=== PATIENT | male | born 1970 | race African-American/Black ===

== ENCOUNTER 2019-09-05 09:55 | Inpatient (IN) | payer BC ==
[~2019-09-05] VITALS: Ht 180.3 cm; Wt 175.7 kg
--- NOTE | 2019-09-05 11:07 | PHYS DOC ---
Adult General Chief Complaint Chief Complaint: SHORTNESS OF BREATH HPI HPI Patient is a 48 year old -[place] male with past medical history significant for hypertension and diabetes who presents with complaint of increasing shortness of breath and chest pressure on exertion over the past week. Currently he is asymptomatic. The patient reports that he had been taking lisinopril twice daily and in June was transitioned to once daily and also started on metformin for diabetes. He denies fever or cough recently. Review of Systems Review of Systems All other systems were reviewed and found to be within normal limits, except as documented in this note. Allergies Allergies Allergies Coded Allergies Type Severity Reaction Last Updated Verified No Known Drug Allergies 09/05/19 No Physical Exam Physical Exam Constitutional: Well developed, well nourished, no acute distress, non-toxic appearance. [] HENT: Normocephalic, atraumatic, bilateral external ears normal, oropharynx moist, no oral exudates, nose normal. [] Eyes: PERRLA, EOMI, conjunctiva normal, no discharge. [] Neck: Normal range of motion, no tenderness, supple, no stridor. [] Cardiovascular:Heart rate regular rhythm, no murmur [] Lungs & Thorax: Bilateral breath sounds clear to auscultation [] Abdomen: Bowel sounds normal, soft, no tenderness, no masses, no pulsatile masses. [] Skin: Warm, dry, no erythema, no rash. [] Back: No tenderness, no CVA tenderness. [] Extremities: No tenderness, no cyanosis, no clubbing, ROM intact, no edema. [] Neurologic: Alert and oriented X 3, normal motor function, normal sensory function, no focal deficits noted. [] Psychologic: Affect normal, judgement normal, mood normal. [] Current Patient Data Vital Signs Vital Signs Date Time Temp Pulse Resp B/P (MAP) Pulse Ox O2 Delivery O2 Flow Rate FiO2 09/05/19 10:50 98.2 94 18 212/125 (154) 98 Room Air 98.2 Lab Values Laboratory Tests Test 09/05/19 11:03 09/05/19 11:20 White Blood Count 6.5 x10^3/uL (4.0-11.0) Red Blood Count 4.85 x10^6/uL (4.30-5.70) Hemoglobin 14.2 g/dL (13.0-17.5) Hematocrit 41.6 % (39.0-53.0) Mean Corpuscular Volume 86 fL (79-100) Mean Corpuscular Hemoglobin 29 pg (25-35) Mean Corpuscular Hemoglobin Concent 34 g/dL (31-37) Red Cell Distribution Width 13.3 % (11.5-14.5) Platelet Count 245 x10^3/uL (140-400) Neutrophils (%) (Auto) 62 % (31-73) Lymphocytes (%) (Auto) 25 % (24-48) Monocytes (%) (Auto) 8 % (0-9) Eosinophils (%) (Auto) 4 % (0-3) H Basophils (%) (Auto) 1 % (0-3) Neutrophils # (Auto) 4.1 x10^3/uL (1.8-7.7) Lymphocytes # (Auto) 1.6 x10^3/uL (1.0-4.8) Monocytes # (Auto) 0.5 x10^3/uL (0.0-1.1) Eosinophils # (Auto) 0.2 x10^3/uL (0.0-0.7) Basophils # (Auto) 0.1 x10^3/uL (0.0-0.2) Prothrombin Time 12.4 SEC (11.7-14.0) Prothrombin Time INR 1.0 (0.8-1.1) Activated Partial Thromboplast Time 30 SEC (24-38) Sodium Level 140 mmol/L (136-145) Potassium Level 3.6 mmol/L (3.5-5.1) Chloride Level 100 mmol/L (98-107) Carbon Dioxide Level 28 mmol/L (21-32) Anion Gap 12 (6-14) Blood Urea Nitrogen 11 mg/dL (8-26) Creatinine 1.2 mg/dL (0.7-1.3) Estimated GFR (Cockcroft-Gault) 77.9 Glucose Level 160 mg/dL (70-99) H Calcium Level 8.9 mg/dL (8.5-10.1) Creatine Kinase 755 U/L (39-308) H Creatine Kinase MB (Mass) 4.8 ng/mL (0.0-3.6) H Creatine Kinase MB Relative Index 0.6 % (0-4) Troponin I Quantitative 0.099 ng/mL (0.000-0.055) NP-Qkh-U-Type Natriuretic Peptide 126 pg/mL (0-124) H Influenza Type A Antigen Negative (NEGATIVE) Influenza Type B Antigen Negative (NEGATIVE) Laboratory Tests 09/05/19 11:03 Laboratory Tests 09/05/19 11:03 EKG EKG EKG shows a sinus rhythm with no ST changes and a heart rate of 91 with normal intervals. [] Radiology/Procedures Radiology/Procedures EXAM: CHEST 1 VIEW History: Shortness of breath COMPARISON: None available. TECHNIQUE: Single portable radiograph of the chest FINDINGS: The cardiac silhouette is unremarkable. The lungs are clear bilaterally. The costophrenic sulci are clear and well demarcated. IMPRESSION: No radiographic evidence of an acute cardiopulmonary process.[] Course & Med Decision Making Course & Med Decision Making Pertinent Labs and Imaging studies reviewed. (See chart for details) 1107: Patient seen for shortness of breath and chest pain on exertion. Currently is asymptomatic and his vessels are stable. Will get a cardiac work- up including BNP and also check for influenza. 1159: Labs revealed mild elevation of the patient's troponin. Given his symptoms over the past week I will admit him for further work-up. Will speak to hospitalist regarding starting heparin versus trending troponins. Blood pressure has also been elevated throughout his stay which could be contributing to his hypertension; will give 10 mg of hydralazine. Dragon Disclaimer Dragon Disclaimer This electronic medical record was generated, in whole or in part, using a voice recognition dictation system. Departure Departure Impression: Primary Impression: NSTEMI (non-ST elevated myocardial infarction) Additional Impression: Hypertension Disposition: ADMITTED INPATIENT Admitting Physician: HIMS Condition: STABLE Referrals: NO PCP (PCP) Problem Qualifiers CHARISSE RAO DO Sep 05, 2019 11:07
[2019-09-05 11:22] LABS: BASO # 0.1 x10^3/uL (0.0-0.2); BASO % 1 % (0-3); EOS # 0.2 x10^3/uL (0.0-0.7); EOS % 4 % (0-3); HEMATOCRIT 41.6 % (39.0-53.0); HEMOGLOBIN 14.2 g/dL (13.0-17.5); LYMPH # 1.6 x10^3/uL (1.0-4.8); LYMPH % 25 % (24-48); MEAN CORPUSCULAR HEMOGLOBIN 29 pg (25-35); MEAN CORPUSCULAR HGB CONC 34 g/dL (31-37); MEAN CORPUSCULAR VOLUME 86 fL (79-100); MONO # 0.5 x10^3/uL (0.0-1.1); MONO % 8 % (0-9); NEUT # 4.1 x10^3/uL (1.8-7.7); NEUT % 62 % (31-73); PLATELET COUNT 245 x10^3/uL (140-400); RED BLOOD COUNT 4.85 x10^6/uL (4.30-5.70); RED CELL DISTRIBUTION WIDTH 13.3 % (11.5-14.5); WHITE BLOOD COUNT 6.5 x10^3/uL (4.0-11.0)
[2019-09-05 11:31] LABS: PROTHROMBIN TIME PATIENT 12.4 SEC (11.7-14.0)
--- NOTE | 2019-09-05 11:33 | RAD ---
EXAM: CHEST 1 VIEW History: Shortness of breath COMPARISON: None available. TECHNIQUE: Single portable radiograph of the chest FINDINGS: The cardiac silhouette is unremarkable. The lungs are clear bilaterally. The costophrenic sulci are clear and well demarcated. IMPRESSION: No radiographic evidence of an acute cardiopulmonary process. Electronically signed by: Bryant Arellano MD (09/05/2019 11:30 AM) [id number]
[2019-09-05 11:37] LABS: CALCIUM 8.9 mg/dL (8.5-10.1); CREATININE 1.2 mg/dL (0.7-1.3); GFR 77.9; POTASSIUM 3.6 mmol/L (3.5-5.1)
[2019-09-05 11:54] LABS: INFLUENZA A PATIENT NEGATIVE (NEGATIVE); INFLUENZA B PATIENT NEGATIVE (NEGATIVE)
--- NOTE | 2019-09-05 12:07 | PDOC1 ---
History and Physical Date of Admission Date of Admission DATE: 09/05/19 TIME: 12:07 Identification/Chief Complaint Chief Complaint SEEN IN ER WITH NSTEMI 48 year old -[place] male with past medical history significant for hypertension and diabetes who presents with complaint of increasing shortness of breath and chest pressure on exertion over the past week. The patient reports that he had been taking lisinopril twice daily and in June was transitioned to once daily and also started on metformin for diabetes Past Medical History Cardiovascular: HTN, Hyperlipidemia Endocrine: Diabetes Family History Family History: High Cholestrol, Hypertension Social History Smoke: No ALCOHOL: none Drugs: None Current Problem List Problem List Problems Medical Problems: (1) Hypertension Status: Acute (2) NSTEMI (non-ST elevated myocardial infarction) Status: Acute Allergies Allergies: Coded Allergies: No Known Drug Allergies (Unverified , 09/05/19) ROS Review of System Review of Systems Review of Systems 14 PT systems were reviewed and found to be within normal limits, except as documented General: No: Chills, Night Sweats, Fatigue, Malaise, Appetite, Other ALLERGY AND IMMUNOLOGY: No: Hives, Insect Bite Sensitivity, Itchy/Watery Eyes, Nasal Congestion, Post Nasal Drip, Seasonal Allergies, Other Hematological and Lymphatic: No: Bleeding Problems, Blood Clots, Blood Transfusions, Brusing, Night Sweats, Pallor, Swollen Lymph Nodes, Other Respiratory: YES: Shortness of breath, SOB with excertion; No: Cough, Hemoptysis, Orthopnea, Pleuritic Pain, Sputum Changes, Stridor, Tachypnea, Wheezing, Other Gastrointestinal: No Nausea, No Vomiting, No Abdominal Pain, No Diarrhea, No Constipation, No Melena, No Hematochezia, No Other Genitourinary: No Dysuria, No Frequency, No Incontinence, No Hematuria, No Retention, No Discharge, No Urgency, No Pain, No Flank Pain, No Other, No , No , No , No , No , No , No Musculoskeletal: Yes Joint Stiffness; No Gait Disturbance, No Joint Pain, No Joint Swelling, No Muscle Pain, No Muscular Weakness, No Pain In:, No Swelling In:, No Other Neurological: No Behavorial Changes, No Bowel/Bladder ControlChng, No Confusion, No Dizziness, No Gait Disturbance, No Headaches, No Impaired Coord/balance, No Memory Loss, No Numbness/Tingling, No Seizures, No Speech Problems, No Tremors, No Visual Changes, No Weakness, No Other Physical Exam Physical Exam Physical Exam Physical Exam Constitutional: Well developed, well nourished, no acute distress, non-toxic appearance. [] HENT: Normocephalic, atraumatic, bilateral external ears normal, oropharynx moist, no oral exudates, nose normal. [] Eyes: PERRLA, EOMI, conjunctiva normal, no discharge. [] Neck: Normal range of motion, no tenderness, supple, no stridor. [] Cardiovascular:Heart rate regular rhythm, no murmur [] Lungs & Thorax: Bilateral breath sounds clear to auscultation [] Abdomen: Bowel sounds normal, soft, no tenderness, no masses, no pulsatile masses. OBESE[] Skin: Warm, dry, no erythema, no rash. [] Back: No tenderness, no CVA tenderness. [] Extremities: No tenderness, no cyanosis, no clubbing, ROM intact, no edema. [] Neurologic: Alert and oriented X 3, normal motor function, normal sensory function, no focal deficits noted. [] Psychologic: Affect normal, judgment normal, mood normal. [] General: Alert, Oriented X3, Cooperative, No acute distress HEENT: EOMI, Mucous membr. moist/pink Lungs: Clear to auscultation, Normal air movement Heart: S1S2, RRR, no thrills Abdomen: Normal bowel sounds, Soft Rectal Exam: not examined PELVIC: Examination not indicated Extremities: No cyanosis Neuro: Normal speech, Cranial nerves 3-12 NL Psych/Mental Status: Mental status NL, Mood NL Vitals Vitals Vital Signs Date Time Temp Pulse Resp B/P (MAP) Pulse Ox O2 Delivery O2 Flow Rate FiO2 09/05/19 10:50 98.2 94 18 212/125 (154) 98 Room Air 98.2 Labs Labs Laboratory Tests Test 09/05/19 11:03 09/05/19 11:20 White Blood Count 6.5 x10^3/uL (4.0-11.0) Red Blood Count 4.85 x10^6/uL (4.30-5.70) Hemoglobin 14.2 g/dL (13.0-17.5) Hematocrit 41.6 % (39.0-53.0) Mean Corpuscular Volume 86 fL (79-100) Mean Corpuscular Hemoglobin 29 pg (25-35) Mean Corpuscular Hemoglobin Concent 34 g/dL (31-37) Red Cell Distribution Width 13.3 % (11.5-14.5) Platelet Count 245 x10^3/uL (140-400) Neutrophils (%) (Auto) 62 % (31-73) Lymphocytes (%) (Auto) 25 % (24-48) Monocytes (%) (Auto) 8 % (0-9) Eosinophils (%) (Auto) 4 % (0-3) Basophils (%) (Auto) 1 % (0-3) Neutrophils # (Auto) 4.1 x10^3/uL (1.8-7.7) Lymphocytes # (Auto) 1.6 x10^3/uL (1.0-4.8) Monocytes # (Auto) 0.5 x10^3/uL (0.0-1.1) Eosinophils # (Auto) 0.2 x10^3/uL (0.0-0.7) Basophils # (Auto) 0.1 x10^3/uL (0.0-0.2) Prothrombin Time 12.4 SEC (11.7-14.0) Prothromb Time International Ratio 1.0 (0.8-1.1) Activated Partial Thromboplast Time 30 SEC (24-38) Sodium Level 140 mmol/L (136-145) Potassium Level 3.6 mmol/L (3.5-5.1) Chloride Level 100 mmol/L (98-107) Carbon Dioxide Level 28 mmol/L (21-32) Anion Gap 12 (6-14) Blood Urea Nitrogen 11 mg/dL (8-26) Creatinine 1.2 mg/dL (0.7-1.3) Estimated GFR (Cockcroft-Gault) 77.9 Glucose Level 160 mg/dL (70-99) Calcium Level 8.9 mg/dL (8.5-10.1) Creatine Kinase 755 U/L (39-308) Creatine Kinase MB (Mass) 4.8 ng/mL (0.0-3.6) Creatine Kinase MB Relative Index 0.6 % (0-4) Troponin I Quantitative 0.099 ng/mL (0.000-0.055) AN-Loy-P-Type Natriuretic Peptide 126 pg/mL (0-124) Influenza Type A Antigen Negative (NEGATIVE) Influenza Type B Antigen Negative (NEGATIVE) Laboratory Tests Test 09/05/19 11:03 09/05/19 11:20 White Blood Count 6.5 x10^3/uL (4.0-11.0) Red Blood Count 4.85 x10^6/uL (4.30-5.70) Hemoglobin 14.2 g/dL (13.0-17.5) Hematocrit 41.6 % (39.0-53.0) Mean Corpuscular Volume 86 fL (79-100) Mean Corpuscular Hemoglobin 29 pg (25-35) Mean Corpuscular Hemoglobin Concent 34 g/dL (31-37) Red Cell Distribution Width 13.3 % (11.5-14.5) Platelet Count 245 x10^3/uL (140-400) Neutrophils (%) (Auto) 62 % (31-73) Lymphocytes (%) (Auto) 25 % (24-48) Monocytes (%) (Auto) 8 % (0-9) Eosinophils (%) (Auto) 4 % (0-3) Basophils (%) (Auto) 1 % (0-3) Neutrophils # (Auto) 4.1 x10^3/uL (1.8-7.7) Lymphocytes # (Auto) 1.6 x10^3/uL (1.0-4.8) Monocytes # (Auto) 0.5 x10^3/uL (0.0-1.1) Eosinophils # (Auto) 0.2 x10^3/uL (0.0-0.7) Basophils # (Auto) 0.1 x10^3/uL (0.0-0.2) Prothrombin Time 12.4 SEC (11.7-14.0) Prothromb Time International Ratio 1.0 (0.8-1.1) Activated Partial Thromboplast Time 30 SEC (24-38) Sodium Level 140 mmol/L (136-145) Potassium Level 3.6 mmol/L (3.5-5.1) Chloride Level 100 mmol/L (98-107) Carbon Dioxide Level 28 mmol/L (21-32) Anion Gap 12 (6-14) Blood Urea Nitrogen 11 mg/dL (8-26) Creatinine 1.2 mg/dL (0.7-1.3) Estimated GFR (Cockcroft-Gault) 77.9 Glucose Level 160 mg/dL (70-99) Calcium Level 8.9 mg/dL (8.5-10.1) Creatine Kinase 755 U/L (39-308) Creatine Kinase MB (Mass) 4.8 ng/mL (0.0-3.6) Creatine Kinase MB Relative Index 0.6 % (0-4) Troponin I Quantitative 0.099 ng/mL (0.000-0.055) BS-Uvm-T-Type Natriuretic Peptide 126 pg/mL (0-124) Influenza Type A Antigen Negative (NEGATIVE) Influenza Type B Antigen Negative (NEGATIVE) Images Images EXAM: CHEST 1 VIEW History: Shortness of breath COMPARISON: None available. TECHNIQUE: Single portable radiograph of the chest FINDINGS: The cardiac silhouette is unremarkable. The lungs are clear bilaterally. The costophrenic sulci are clear and well demarcated. IMPRESSION: No radiographic evidence of an acute cardiopulmonary process. Electronically signed by: Bryant Arellano MD (09/05/2019 11:30 AM) [id number] DICTATED and SIGNED BY: BRYANT ARELLANO MD DATE: 09/05/19 1130 VTE Prophylaxis Ordered VTE Prophylaxis Devices: Yes VTE Pharmacological Prophylaxi: Yes Assessment/Plan Assessment/Plan Impression: acute NSTEMI (non-ST elevated myocardial infarction) vs type ii ischemia due to myocardial demand morbid obesity, extreme Hypertension Suspect OBESITY-HYPOVENTILATION SYNDROME DIABETES ADMITTED cvc bed Consult cardiology CONSIDER ECHO SERIAL TROPONIN I HS OXIMETRY STUDY DVT PROPHYLAXIS ACCUCHECKS 77 MIN pt exam, chart review, > 50% of time spent with exam, chart review, pt care coordination CAILIN STARKS MD Sep 05, 2019 12:07
[2019-09-05] MEDS ORDERED: ASPIRIN CHEWABLE 81 MG TABLET. PO ONE (12:30)
[2019-09-05] MEDS ORDERED: hydrALAZINE 20 MG/ML VIAL. IVP PRN (12:30)
[2019-09-05] MEDS ORDERED: 0.9 % SODIUM CHLORIDE 10 ML DISP.SYRIN. IV PRN (13:15)
[2019-09-05] MEDS ORDERED: ONDANSETRON PF 4 MG/2 ML VIAL. IV PRN (13:15)
[2019-09-05] MEDS ORDERED: ALBUTEROL SULFATE 2.5 MG/3 ML NEBU. NEB PRN (13:15)
[2019-09-05] MEDS ORDERED: DOCUSATE SODIUM 100 MG CAPSULE. PO PRN (13:15)
[2019-09-05] MEDS ORDERED: MAG HYDROX/ALUMINUM HYD/SIMETH 30 ML ORAL.SUSP PO PRN (13:15)
[2019-09-05] MEDS ORDERED: guaiFENesin ORAL 200 MG/10 ML LIQUID. PO PRN (13:15)
[2019-09-05] MEDS ORDERED: ACETAMINOPHEN 325 MG TABLET. PO PRN (13:15)
[2019-09-05 13:22] VITALS: BP 103/62
[2019-09-05] MEDS ORDERED: HYDR12.575 PO (13:29)
[2019-09-05] MEDS ORDERED: LISI1TAB23 PO (13:29)
[2019-09-05 15:00] VITALS: BP 184/93
--- NOTE | 2019-09-05 15:24 | EKG ---
[facility] [address] [place] [address] Test Date: 2019-09-05 Test Time: 10:58:40 Pat Name: HERBER MCGRATH Department: Room: Gender: M [employer]: : 1970 Requested By: CHARISSE RAO Order Number: [id number] Reading MD: Measurements Intervals [place] Rate: 91 P: 36 IL: 166 QRS: 76 QRSD: 86 T: 138 QT: 362 QTc: 446 Interpretive Statements SINUS RHYTHM LVH WITH REPOLARIZATION ABNORMALITY ABNORMAL ECG No previous ECG available for comparison
[2019-09-05] MEDS ORDERED: POTASSIUM CHLORIDE 20 MEQ TABLET.ER. PO ONE (16:00)
[2019-09-05] MEDS ORDERED: FUROSEMIDE 40 MG TABLET. PO ONE (16:00)
--- NOTE | 2019-09-05 16:00 | CONS ---
DATE OF CONSULTATION: 09/05/2019 REASON FOR CONSULTATION: Hypertension and elevated troponin. HISTORY OF PRESENT ILLNESS: The patient is a pleasant 48-year-old man who reports that he has been under significant stress over the last few weeks due to a divorce and who otherwise is compliant with his medications, who thinks that he had his lisinopril decreased over the last few months, which ultimately led to elevated blood pressures. It seems that he has been dyspneic, but denies any anginal symptoms. No syncope or palpitations. No other medication changes. PAST MEDICAL HISTORY: 1. Hypertension. 2. Morbid obesity. 3. Borderline diabetes. SOCIAL HISTORY: The patient is currently going through divorce. He lives with his brother. Denies any alcohol, tobacco or illicit drug use. ALLERGIES: No known drug allergies. CURRENT CARDIOVASCULAR MEDICATIONS: 1. Lisinopril 20 mg daily. 2. Hydrochlorothiazide 25 mg p.o. daily. REVIEW OF SYSTEMS: Negative for 10 out of 14 systems reviewed, unless otherwise mentioned above in HPI. PHYSICAL EXAMINATION: VITAL SIGNS: Afebrile, heart rate 86, respirations 16, blood pressure 184/93, saturating 99% on room air. GENERAL: He is alert and oriented, no acute distress. HEAD AND NECK: Unremarkable. CARDIAC: Deferred. PULMONARY: Deferred. ABDOMEN: Obese, protuberant, nontender. EXTREMITIES: Bilateral lower extremities have 2+ pitting edema. NEUROLOGIC: No focal deficits. MUSCULOSKELETAL: No trauma. DIAGNOSTIC STUDIES: Hemoglobin, platelets, creatinine within normal limits. BNP is elevated at 126, but grossly within normal limits. Troponin is mildly elevated at 0.099. EKG is notable for sinus rhythm with left ventricular hypertrophy. Other testing is pending including an echocardiogram. IMPRESSION: 1. Acute diastolic heart failure in the setting of hypertensive urgency. 2. Elevated troponin, likely type 2 due to demand mediated ischemia. 3. Morbid obesity. 4. Borderline diabetes. RECOMMENDATIONS: 1. We will reinitiate his lisinopril and hydrochlorothiazide, and use Lasix as well to help decrease his volume overload. 2. Depending on his response, we will adjust his medications overnight. Plan for an echocardiogram tomorrow. If his echocardiogram is unremarkable, then he may be discharged with close followup in the office. Otherwise, we will talk about cardiac catheterization as necessary. Thank you for this consultation. YOLI SCHAFFER MD DR: ARTHUR/cj JOB#: [id number] / [id number]
[2019-09-05] MEDS: LISINOPRIL 20 MG TABLET PO SCH (16:18)
[2019-09-05] MEDS: hydroCHLOROthiazide 25 MG TABLET PO SCH (16:18)
[2019-09-05 19:25] VITALS: BP 182/109
[2019-09-05] MEDS: cloNIDine HCL 0.1 MG TABLET PO PRN (19:58)
[2019-09-05 22:50] VITALS: BP 151/86
[2019-09-06 03:20] VITALS: BP 170/92
[2019-09-06] MEDS: cloNIDine HCL 0.1 MG TABLET PO PRN ×2 (03:26→20:14)
[2019-09-06 07:00] VITALS: BP 164/94
[2019-09-06] MEDS: hydroCHLOROthiazide 25 MG TABLET PO SCH (08:05)
[2019-09-06] MEDS: LISINOPRIL 20 MG TABLET PO SCH (08:05)
--- NOTE | 2019-09-06 10:15 | PDOC ---
PROGRESS NOTES Chief Complaint Chief Complaint Acute diastolic heart failure in the setting of hypertensive urgency. Elevated troponin, likely type 2 due to demand mediated ischemia Morbid obesity. Borderline diabetes. History of Present Illness History of Present Illness Mr Sampson is a 48 yo M w/ PMHx HTN, Prediabetes, morbid obesity who p/w elevated blood pressure and shortness of breath. Also with chest pressure on exertion over the past week. elevated troponin 0.099. BNP 126. EKG sinus rhythm with left ventricular hypertrophy. He notes that when he filled his recent meformin prescription his lisinopril/hctz was not refilled. Overnight his shortness of breath improved with BP control. Troponin went to 0.107-->0.116-->0.093. Planned for echocardiogram today. No CP. He is anxious to go home soon. Vitals Vitals Vital Signs Date Time Temp Pulse Resp B/P (MAP) Pulse Ox O2 Delivery O2 Flow Rate FiO2 09/06/19 08:05 80 164/94 09/06/19 08:00 Room Air 09/06/19 07:00 97.5 18 100 97.5 09/05/19 13:22 96.0 Physical Exam General: Alert, Oriented X3, Cooperative, No acute distress Abdomen: Normal bowel sounds, Soft Extremities: No cyanosis Labs LABS Laboratory Tests Test 09/05/19 11:03 09/05/19 11:20 09/05/19 18:05 09/05/19 20:30 White Blood Count 6.5 x10^3/uL (4.0-11.0) Red Blood Count 4.85 x10^6/uL (4.30-5.70) Hemoglobin 14.2 g/dL (13.0-17.5) Hematocrit 41.6 % (39.0-53.0) Mean Corpuscular Volume 86 fL (79-100) Mean Corpuscular Hemoglobin 29 pg (25-35) Mean Corpuscular Hemoglobin Concent 34 g/dL (31-37) Red Cell Distribution Width 13.3 % (11.5-14.5) Platelet Count 245 x10^3/uL (140-400) Neutrophils (%) (Auto) 62 % (31-73) Lymphocytes (%) (Auto) 25 % (24-48) Monocytes (%) (Auto) 8 % (0-9) Eosinophils (%) (Auto) 4 % (0-3) Basophils (%) (Auto) 1 % (0-3) Neutrophils # (Auto) 4.1 x10^3/uL (1.8-7.7) Lymphocytes # (Auto) 1.6 x10^3/uL (1.0-4.8) Monocytes # (Auto) 0.5 x10^3/uL (0.0-1.1) Eosinophils # (Auto) 0.2 x10^3/uL (0.0-0.7) Basophils # (Auto) 0.1 x10^3/uL (0.0-0.2) Prothrombin Time 12.4 SEC (11.7-14.0) Prothromb Time International Ratio 1.0 (0.8-1.1) Activated Partial Thromboplast Time 30 SEC (24-38) Sodium Level 140 mmol/L (136-145) Potassium Level 3.6 mmol/L (3.5-5.1) Chloride Level 100 mmol/L (98-107) Carbon Dioxide Level 28 mmol/L (21-32) Anion Gap 12 (6-14) Blood Urea Nitrogen 11 mg/dL (8-26) Creatinine 1.2 mg/dL (0.7-1.3) Estimated GFR (Cockcroft-Gault) 77.9 Glucose Level 160 mg/dL (70-99) Calcium Level 8.9 mg/dL (8.5-10.1) Creatine Kinase 755 U/L (39-308) Creatine Kinase MB (Mass) 4.8 ng/mL (0.0-3.6) Creatine Kinase MB Relative Index 0.6 % (0-4) Troponin I Quantitative 0.099 ng/mL (0.000-0.055) 0.116 ng/mL (0.000-0.055) TI-Kbx-N-Type Natriuretic Peptide 126 pg/mL (0-124) Influenza Type A Antigen Negative (NEGATIVE) Influenza Type B Antigen Negative (NEGATIVE) Glucose (Fingerstick) 133 mg/dL (70-99) Test 09/06/19 00:30 09/06/19 06:30 09/06/19 07:59 Troponin I Quantitative 0.107 ng/mL (0.000-0.055) 0.093 ng/mL (0.000-0.055) Glucose (Fingerstick) 150 mg/dL (70-99) Assessment and Plan Assessmemt and Plan Problems Medical Problems: (1) Hypertension Status: Acute (2) NSTEMI (non-ST elevated myocardial infarction) Status: Acute Comment Review of Relevant I have reviewed the following items arianna (where applicable) has been applied. Labs Laboratory Tests Test 09/05/19 11:03 09/05/19 11:20 09/05/19 18:05 09/05/19 20:30 White Blood Count 6.5 x10^3/uL (4.0-11.0) Red Blood Count 4.85 x10^6/uL (4.30-5.70) Hemoglobin 14.2 g/dL (13.0-17.5) Hematocrit 41.6 % (39.0-53.0) Mean Corpuscular Volume 86 fL (79-100) Mean Corpuscular Hemoglobin 29 pg (25-35) Mean Corpuscular Hemoglobin Concent 34 g/dL (31-37) Red Cell Distribution Width 13.3 % (11.5-14.5) Platelet Count 245 x10^3/uL (140-400) Neutrophils (%) (Auto) 62 % (31-73) Lymphocytes (%) (Auto) 25 % (24-48) Monocytes (%) (Auto) 8 % (0-9) Eosinophils (%) (Auto) 4 % (0-3) Basophils (%) (Auto) 1 % (0-3) Neutrophils # (Auto) 4.1 x10^3/uL (1.8-7.7) Lymphocytes # (Auto) 1.6 x10^3/uL (1.0-4.8) Monocytes # (Auto) 0.5 x10^3/uL (0.0-1.1) Eosinophils # (Auto) 0.2 x10^3/uL (0.0-0.7) Basophils # (Auto) 0.1 x10^3/uL (0.0-0.2) Prothrombin Time 12.4 SEC (11.7-14.0) Prothromb Time International Ratio 1.0 (0.8-1.1) Activated Partial Thromboplast Time 30 SEC (24-38) Sodium Level 140 mmol/L (136-145) Potassium Level 3.6 mmol/L (3.5-5.1) Chloride Level 100 mmol/L (98-107) Carbon Dioxide Level 28 mmol/L (21-32) Anion Gap 12 (6-14) Blood Urea Nitrogen 11 mg/dL (8-26) Creatinine 1.2 mg/dL (0.7-1.3) Estimated GFR (Cockcroft-Gault) 77.9 Glucose Level 160 mg/dL (70-99) Calcium Level 8.9 mg/dL (8.5-10.1) Creatine Kinase 755 U/L (39-308) Creatine Kinase MB (Mass) 4.8 ng/mL (0.0-3.6) Creatine Kinase MB Relative Index 0.6 % (0-4) Troponin I Quantitative 0.099 ng/mL (0.000-0.055) 0.116 ng/mL (0.000-0.055) PW-Qel-Y-Type Natriuretic Peptide 126 pg/mL (0-124) Influenza Type A Antigen Negative (NEGATIVE) Influenza Type B Antigen Negative (NEGATIVE) Glucose (Fingerstick) 133 mg/dL (70-99) Test 09/06/19 00:30 09/06/19 06:30 09/06/19 07:59 Troponin I Quantitative 0.107 ng/mL (0.000-0.055) 0.093 ng/mL (0.000-0.055) Glucose (Fingerstick) 150 mg/dL (70-99) Laboratory Tests Test 09/05/19 11:03 09/05/19 11:20 09/05/19 18:05 09/05/19 20:30 White Blood Count 6.5 x10^3/uL (4.0-11.0) Red Blood Count 4.85 x10^6/uL (4.30-5.70) Hemoglobin 14.2 g/dL (13.0-17.5) Hematocrit 41.6 % (39.0-53.0) Mean Corpuscular Volume 86 fL (79-100) Mean Corpuscular Hemoglobin 29 pg (25-35) Mean Corpuscular Hemoglobin Concent 34 g/dL (31-37) Red Cell Distribution Width 13.3 % (11.5-14.5) Platelet Count 245 x10^3/uL (140-400) Neutrophils (%) (Auto) 62 % (31-73) Lymphocytes (%) (Auto) 25 % (24-48) Monocytes (%) (Auto) 8 % (0-9) Eosinophils (%) (Auto) 4 % (0-3) Basophils (%) (Auto) 1 % (0-3) Neutrophils # (Auto) 4.1 x10^3/uL (1.8-7.7) Lymphocytes # (Auto) 1.6 x10^3/uL (1.0-4.8) Monocytes # (Auto) 0.5 x10^3/uL (0.0-1.1) Eosinophils # (Auto) 0.2 x10^3/uL (0.0-0.7) Basophils # (Auto) 0.1 x10^3/uL (0.0-0.2) Prothrombin Time 12.4 SEC (11.7-14.0) Prothromb Time International Ratio 1.0 (0.8-1.1) Activated Partial Thromboplast Time 30 SEC (24-38) Sodium Level 140 mmol/L (136-145) Potassium Level 3.6 mmol/L (3.5-5.1) Chloride Level 100 mmol/L (98-107) Carbon Dioxide Level 28 mmol/L (21-32) Anion Gap 12 (6-14) Blood Urea Nitrogen 11 mg/dL (8-26) Creatinine 1.2 mg/dL (0.7-1.3) Estimated GFR (Cockcroft-Gault) 77.9 Glucose Level 160 mg/dL (70-99) Calcium Level 8.9 mg/dL (8.5-10.1) Creatine Kinase 755 U/L (39-308) Creatine Kinase MB (Mass) 4.8 ng/mL (0.0-3.6) Creatine Kinase MB Relative Index 0.6 % (0-4) Troponin I Quantitative 0.099 ng/mL (0.000-0.055) 0.116 ng/mL (0.000-0.055) WT-Ilh-W-Type Natriuretic Peptide 126 pg/mL (0-124) Influenza Type A Antigen Negative (NEGATIVE) Influenza Type B Antigen Negative (NEGATIVE) Glucose (Fingerstick) 133 mg/dL (70-99) Test 09/06/19 00:30 09/06/19 06:30 09/06/19 07:59 Troponin I Quantitative 0.107 ng/mL (0.000-0.055) 0.093 ng/mL (0.000-0.055) Glucose (Fingerstick) 150 mg/dL (70-99) Medications Current Medications Hydralazine HCl (Apresoline Inj) 10 mg Q4HRS PRN IVP HYPERTENSION Last admi nistered on 09/05/19at 12:58; Start 09/05/19 at 12:30 Aspirin (Children'S Aspirin) 324 mg 1X ONCE PO Last administered on 09/05/19at 12:57; Start 09/05/19 at 12:30; Stop 09/05/19 at 12:31; Status DC Sodium Chloride (Normal Saline Flush) 3 ml QSHIFT PRN IV AFTER MEDS AND BLOOD DRAWS; Start 09/05/19 at 13:15 Ondansetron HCl (Zofran) 4 mg PRN Q4HRS PRN IV NAUSEA/VOMITING; Start 09/05/19 at 13:15 Acetaminophen (Tylenol) 650 mg PRN Q4HRS PRN PO TEMP OVER 100.4F OR MILD PAIN Last administered on 09/05/19at 19:58; Start 09/05/19 at 13:15 Al Hydroxide/Mg Hydroxide (Mylanta Plus Xs) 30 ml PRN DAILY PRN PO HEARTBURN / GAS; Start 09/05/19 at 13:15 Clonidine HCl (Catapres) 0.1 mg PRN Q6HRS PRN PO SBP>160 OR DBP>90 Last administered on 09/06/19at 03:26; Start 09/05/19 at 13:15 Docusate Sodium (Colace) 100 mg PRN BID PRN PO CONSTIPATION; Start 09/05/19 at 13:15 Albuterol Sulfate (Ventolin Neb Soln) 2.5 mg PRN Q4HRS PRN NEB SHORTNESS OF BREATH; Start 09/05/19 at 13:15 Guaifenesin (Robitussin) 200 mg PRN Q4HRS PRN PO COUGH; Start 09/05/19 at 13:15 Enoxaparin Sodium (Lovenox 60mg Syringe) 60 mg Q12HR SQ Last administered on 09/06/19at 08:06; Start 09/05/19 at 14:00 Lisinopril (Prinivil) 20 mg DAILY PO Last administered on 09/06/19at 08:05; Start 09/05/19 at 16:00 Hydrochlorothiazide (Hydrodiuril) 25 mg DAILY PO Last administered on 09/06/19at 08:05; Start 09/05/19 at 16:00 Furosemide (Lasix) 40 mg 1X ONCE PO Last administered on 09/05/19at 17:05; Start 09/05/19 at 16:00; Stop 09/05/19 at 16:01; Status DC Potassium Chloride (Klor-Con) 40 meq 1X ONCE PO Last administered on 09/05/19at 17:05; Start 09/05/19 at 16:00; Stop 09/05/19 at 16:01; Status DC Active Scripts Active Reported Lisinopril-Hctz 10-12.5 Mg Tab (Lisinopril/Hydrochlorothiazide) 1 Each Tablet 1 Tab PO BID Vitals/I & O Vital Sign - Last 24 Hours 09/05/19 09/05/19 09/05/19 09/05/19 10:50 11:30 12:00 12:30 Temp 98.2 98.2 Pulse 94 88 84 82 Resp 18 16 16 18 B/P (MAP) 212/125 (154) 203/91 (128) 197/100 (132) 205/94 (131) Pulse Ox 98 99 97 98 O2 Delivery Room Air Room Air Room Air Room Air 09/05/19 09/05/19 09/05/19 09/05/19 12:58 13:22 15:00 16:18 Temp 98.3 98.2 98.3 98.2 Pulse 93 90 86 93 Resp 20 16 B/P (MAP) 205/94 103/62 (76) 184/93 (123) Pulse Ox 99 O2 Delivery Room Air Room Air O2 Flow Rate 96.0 09/05/19 09/05/19 09/05/19 09/05/19 19:25 19:58 20:00 22:50 Temp 97.5 97.9 97.5 97.9 Pulse 91 93 89 Resp 20 20 B/P (MAP) 182/109 (133) 184/93 151/86 (107) Pulse Ox 97 100 O2 Delivery Room Air Room Air Room Air 09/06/19 09/06/19 09/06/19 09/06/19 03:20 03:26 07:00 08:00 Temp 97.7 97.5 97.7 97.5 Pulse 75 83 80 Resp 20 18 B/P (MAP) 170/92 (118) 170/92 164/94 (117) Pulse Ox 94 100 O2 Delivery Room Air Room Air Room Air 09/06/19 08:05 Pulse 80 B/P (MAP) 164/94 Intake and Output 09/05/19 09/05/19 09/06/19 15:00 23:00 07:00 Intake Total 900 ml 1640 ml Output Total 725 ml Balance 900 ml 915 ml KONRAD AGUIRRE MD Sep 06, 2019 10:15
[2019-09-06 11:00] VITALS: BP 161/96
[2019-09-06] MEDS ORDERED: LISINOPRIL 20 MG TABLET PO ONE (11:15)
[2019-09-06 15:00] VITALS: BP 162/102
[2019-09-06] MEDS ORDERED: AMLO5TAB10 PO (15:45)
[2019-09-06] MEDS ORDERED: LISI1TAB23 PO (15:45)
[2019-09-06] MEDS: amLODIPine BESYLATE 5 MG TABLET PO SCH (16:31)
[2019-09-06 19:59] VITALS: BP 154/101
[2019-09-06 22:43] VITALS: BP 173/80
[2019-09-07 03:59] VITALS: BP 147/85
[2019-09-07 07:38] VITALS: BP 179/75
[2019-09-07] MEDS: amLODIPine BESYLATE 5 MG TABLET PO SCH (08:39)
[2019-09-07] MEDS: hydroCHLOROthiazide 25 MG TABLET PO SCH (08:39)
[2019-09-07] MEDS ORDERED: LISINOPRIL 20 MG TABLET PO SCH (09:00)
[2019-09-07 10:22] VITALS: BP 178/77
--- NOTE | 2019-09-07 10:47 | CARD ---
MR#: [id number] Date of Study: 09/07/2019 Ordering Physician: CAILIN STARKS, Referring Physician: CAILIN STARKS Tech: Lynn Amador RDCS APPROVED REPORT EXAM: Two-dimensional and M-mode echocardiogram with Doppler and color Doppler. Other Information Quality : Technically Limited Technically limited study due to body habitus. INDICATION Chest Pain RISK FACTORS Hypertension Obesity Diabetes 2D DIMENSIONS Left Atrium(2D)3.4 (1.6-4.0cm)IVSd1.0 (0.7-1.1cm) Aortic Root(2D)2.6 (2.0-3.7cm)LVDd4.5 (3.9-5.9cm) PWd1.0 (0.7-1.1cm)LVDs3.7 (2.5-4.0cm) FS (%) 27.0 %SV34.7 ml LVEF(%)55.0 (>50%) Aortic Valve AoV Peak Aleksandr.145.6cm/sAoV VTI22.9cm AO Peak GR.8.5mmHgLVOT Peak Aleksandr.122.2cm/s AO Mean GR.5mmHg Mitral Valve MV E Brtceqne19.5cm/sMV DECEL [id number] MV A Tytwalze06.3cm/sE/A Ratio1.4 Pulmonary Vein S1 Adjmaeln19.7cm/sD2 Zyqcdadz30.7cm/s LEFT VENTRICLE The left ventricle is normal size. There is normal left ventricular wall thickness. The left ventricu lar systolic function is normal and the ejection fraction is within normal range. The Ejection Fracti on is 55-60%. There is normal LV segmental wall motion. Transmitral Doppler flow pattern is Grade I-a bnormal relaxation pattern. RIGHT VENTRICLE The right ventricle is normal size. The right ventricular systolic function is normal. ATRIA The left atrium size is normal. The right atrium size is normal. The interatrial septum is intact wit h no evidence for an atrial septal defect or patent foramen ovale as noted on 2-D or Doppler imaging. AORTIC VALVE The aortic valve is not well visualized but appears to be functioning normally by Doppler interrogati on. Doppler and Color Flow revealed no significant aortic regurgitation. There is no significant aort ic valvular stenosis. MITRAL VALVE The mitral valve is calcified but opens well. There is no evidence of mitral valve prolapse. There is no mitral valve stenosis. Doppler and Color Flow revealed no mitral valve regurgitation noted. TRICUSPID VALVE The tricuspid valve is normal in structure and function. Doppler and Color Flow revealed no tricuspid valve regurgitation noted. There is no tricuspid valve stenosis. PULMONIC VALVE The pulmonic valve is not well visualized. GREAT VESSELS The aortic root is normal in size. The ascending aorta is not well seen. The IVC was not visualized. PERICARDIAL EFFUSION There is no evidence of significant pericardial effusion. Critical Notification Critical Value: No <Conclusion> The left ventricular systolic function is normal and the ejection fraction is within normal range. Th e Ejection Fraction is 55-60%. There is normal LV segmental wall motion. Technically difficult study Signed by : Eleno Hernández, Electronically Approved : 09/07/2019 10:46:46
--- NOTE | 2019-09-07 10:48 | NUR ---
SS following for discharge planning. SS reviewed pt chart and discussed with RN. Pt is from home and is currently on room air. No discharge needs noted at this time. SS will continue to follow for discharge planning.
[2019-09-07 11:21] VITALS: BP 178/77
[2019-09-07] MEDS: cloNIDine HCL 0.1 MG TABLET PO PRN (11:21)
--- NOTE | 2019-09-07 12:44 | PDOC ---
CARDIOLOGY PROGRESS NOTE SUBJECTIVE: No acute events overnight. Denies any chest pain. No syncope/palpitations. OBJECTIVE: Vital Signs/I&O: Vital Signs Date Time Temp Pulse Resp B/P (MAP) Pulse Ox O2 Delivery O2 Flow Rate FiO2 09/07/19 11:21 83 178/77 09/07/19 10:22 97.9 18 98 Room Air 97.9 I & O 09/06/19 09/06/19 09/07/19 15:00 23:00 07:00 Intake Total 850 ml 1080 ml 300 ml Output Total 200 ml Balance 650 ml 1080 ml 300 ml Objective: a/o x 3. NAD persistent LE edema. Venous insufficiency. Obese abdomen. CURRENT MEDICATIONS: Current Medications Medications (Trade) Dose Ordered Sig/Steven Route PRN Reason Start Time Stop Time Status Last Admin Dose Admin Lisinopril (Prinivil) 40 mg DAILY PO 09/07/19 09:00 09/07/19 08:43 Amlodipine Besylate (Norvasc) 5 mg DAILY PO 09/06/19 15:45 09/07/19 08:39 DIAGNOSTIC TESTING: Echo reviewed. Discussed with patient. Labs: Laboratory Tests Test 09/06/19 16:30 09/06/19 20:54 09/07/19 07:41 09/07/19 11:33 Glucose (Fingerstick) 100 mg/dL (70-99) H 149 mg/dL (70-99) H 122 mg/dL (70-99) H 112 mg/dL (70-99) H ASSESSMENT: 1. Acute diastolic HF 2. Elevated troponin due to HTN, Type 2 3. Obesity PLAN: 1. Home on lisinopril 40mg daily, Amlodipine 10mg daily and HCTZ 25mg daily. f/u in the office in 3 months with stress testing prior due to history of multiple risk factors. thanks YOLI SCHAFFER MD Sep 07, 2019 12:44
[2019-09-07] MEDS ORDERED: LISI-130 PO (13:23)
[2019-09-07] MEDS ORDERED: HYDR-2145 PO (13:23)
[2019-09-07] MEDS ORDERED: AMLO10TA8 PO (13:24)
--- NOTE | 2019-09-07 15:00 | NUR ---
Discharge Note: MARCELINO MCGRATH Discharge instructions and discharge home medications reviewed with Patient and a copy given. All questions have been answered and understanding verbalized. Follow up information provided to patient. Prescriptions for amlodipine, lisinopril, and HCTZ given to patient. The following instructions and handouts were given: Hypertension, amlodipine tablets Discontinued lines and drains: Peripheral IV intact. Patient discharged to Home or Self Care with Self via Ambulated
== END 2019-09-07 14:50 | disposition home or self-care (01) | DRG 291 ==
LOC: ER 09:55 → 2 NORTH 12:02 → OBSVTOIN 13:06 → 2 NORTH 09-06 16:58
PROVIDERS: ADMIT Family Medicine; ATTEND Family Medicine
DX: I11.0 Hypertensive heart disease with heart failure (principal); I50.31 Acute diastolic (congestive) heart failure; Z68.43 Body mass index [BMI] 50.0-59.9, adult; I16.0 Hypertensive urgency; E11.9 Type 2 diabetes mellitus without complications; E78.5 Hyperlipidemia, unspecified; E66.01 Morbid (severe) obesity due to excess calories; Z82.49 Family history of ischemic heart disease and other diseases of the circulatory system
CPT/HCPCS: 36415; 71045; 80048; 82553; 82962; 83880; 84484; 85025; 85610; 85730; 87804; 93005; 93306; 94799; G0379; J0360; J1650; G0378